=== PATIENT | male | born 1950 | race African-American/Black ===

== ENCOUNTER 2019-09-11 15:51 | Emergency (ER) | payer SELFPAY ==
[~2019-09-11] VITALS: Ht 188 cm; Wt 117.9 kg
[2019-09-11] MEDS ORDERED: KETOROLAC TROMETHAMINE INJ 60 MG/2 ML VIAL IM ONE (18:00)
[2019-09-11] MEDS ORDERED: CYCLOBENZAPRINE 10 MG TABLET PO ONE (18:00)
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
--- NOTE | 2019-09-11 18:05 | NUR ---
TO CT ON EMILY
[2019-09-11] MEDS ORDERED: CYCLOBENZAPRINE 10 MG TABLET ONE (18:06)
[2019-09-11] MEDS ORDERED: KETOROLAC TROMETHAMINE INJ 30 MG/ML VIAL ONE (18:06)
--- NOTE | 2019-09-11 18:24 | NUR ---
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 ROM INTACT. MADE AWARE
--- NOTE | 2019-09-11 18:50 | NUR ---
Patient discharged to home in stable condition. Written and verbal after care instructions given. Patient verbalizes understanding of instruction. Pt ambulatory with a steady gait
[2019-09-11 18:52] VITALS: BP 143/82
== END 2019-09-11 18:52 | disposition home or self-care (01) ==
LOC: ER 15:52
DX: S13.8XXA Sprain of joints and ligaments of other parts of neck, initial encounter (principal); M25.512 Pain in left shoulder; M25.511 Pain in right shoulder; R51 Headache; I10 Essential (primary) hypertension; E11.9 Type 2 diabetes mellitus without complications; V49.49XA Driver injured in collision with other motor vehicles in traffic accident, initial encounter; Y93.89 Activity, other specified; Y92.488 Other paved roadways as the place of occurrence of the external cause; Y99.8 Other external cause status
CPT/HCPCS: 70450; 71045; 72125; 96372; 99285; J1885